=== PATIENT | male | born 1975 | race Caucasian/White ===

== ENCOUNTER 2016-11-03 15:36 | Emergency (ER) | payer BC ==
[~2016-11-03] VITALS: Ht 177.8 cm; Wt 74.8 kg
[~2016-11-03 15:36] MED LIST: LEVO100T7 PO; POLY1DRO19 OP
[2016-11-03 15:47] VITALS: TEMP 37.1; Ht 177.8 cm; Wt 74.8 kg
[2016-11-03] MEDS ORDERED: ONDANSETRON INJ 2 MG/ML 2 ML VIAL IV STA (16:33)
[2016-11-03 16:44] LABS: BASO % 0.1 %; BASO ABS # 0.01 K/uL (0-0.2); COMPLETE YES; EOS % 0.5 %; HEMATOCRIT 42.5 % (42-52); IG% 0.2 %; LYMPH % 11.2 %; LYMPH ABS # 1.35 K/uL (1.2-3.4); MEAN CELL VOLUME 84.5 fL (80-100); MEAN CORPUSCULAR HGB CONC 35.5 g/dl (32-36); MEAN PLATELET VOLUME 9.8 fL (7.4-10.4); MONO % 8.1 %; NEUT % 79.9 %; PLATELET COUNT 270 K/uL (130-400); RED BLOOD COUNT 5.03 M/uL (4.7-6.1); WHITE BLOOD COUNT 12.04 K/uL (4.8-10.8)
[2016-11-03] MEDS ORDERED: SODIUM CHLORIDE 0.9% 1000ML 1,000 ML IV ONE (16:45)
[2016-11-03] MEDS ORDERED: MoRPHine SULFATE 4 MG/ML 1 ML CARP\\VIAL IV PRN (16:45)
[2016-11-03 17:07] LABS: BUN/CREATININE RATIO 10.7 (10-20); CALCIUM 9.6 mg/dl (8.5-10.1); CREATININE 0.97 mg/dl (0.60-1.40); POTASSIUM 3.4 mmol/L (3.5-5.1)
[2016-11-03 17:07] LABS: URINE APPEARANCE CLOUDY (CLEAR); URINE BILIRUBIN NEG (NEG); URINE COLOR YELLOW; URINE EPITHELIAL CELL AUTO 0-5 /lpf (0-5); URINE NITRITE NEG (NEG); URINE PH 7.5 (4.5-7.5); URINE SPECIFIC GRAVITY 1.016 (1.000-1.030); UROBILINOGEN NEG (NEG); ZZUR CULT IF INDIC CLEAN CATCH NO
[2016-11-03 17:12] LABS: MANUAL MICROSCOPIC REQUIRED? NO; REVIEW REQ? NO
[2016-11-03] MEDS ORDERED: OPTIRAY 320 IV PRN (17:30)
[2016-11-03] MEDS ORDERED: LEVO125T4 PO (17:33)
[2016-11-03] MEDS ORDERED: TRIA1SPR4 (17:34)
[2016-11-03] MEDS ORDERED: LORA10TA57 PO (17:39)
[2016-11-03] MEDS ORDERED: KETO0.024 OP (17:39)
--- NOTE | 2016-11-03 20:06 | DIAGNOSTIC IMAGING REPORT ---
ABDOMEN AND PELVIS CT WITH IV AND ORAL CONTRAST CT DOSE: 380.65 mGy.cm HISTORY: Pain LLQ pain TECHNIQUE: Multiaxial CT images of the abdomen and pelvis were performed following the use of intravenous and oral contrast. COMPARISON STUDY: None. FINDINGS: Lung bases are clear. Liver spleen and pancreas are unremarkable. Kidneys enhance uniformly and are negative for hydronephrosis. There there is a small gallstone. Upper bowel pattern is nonobstructive. The pelvis is remarkable for wall thickening and considerable pericolonic infiltrative change of the proximal to mid sigmoid. This consistent with that of acute diverticulitis. No evidence for drainable abscess collection or obstruction. Infiltrative change extends to the left lateral pelvic sidewall IMPRESSION: 1. Acute proximal to mid sigmoid diverticulitis. 2. Considerable pericolonic infiltrative change with significant colonic wall thickening. 3. No evidence for abscess collection or obstructive change Electronically signed by: Tin Bolton M.D. 11/03/2016 8:04 PM Dictated Date/Time: 11/03/2016 8:02 PM
[2016-11-03] MEDS ORDERED: METRONIDAZOLE 250 MG TAB PO STA (20:35)
[2016-11-03] MEDS ORDERED: METR-163 PO (20:42)
[2016-11-03] MEDS ORDERED: HYDR-5688 PO (20:42)
[2016-11-03] MEDS ORDERED: CIPR1TAB10 PO (20:42)
[2016-11-03] MEDS ORDERED: CIPROFLOXACIN 500MG HOME PACK PO ONE (20:45)
[2016-11-03] MEDS ORDERED: NORCO 5/325MG HOME PACK PO ONE (20:45)
[2016-11-03] MEDS ORDERED: EMPTY 8 DRAM VIAL ONE (21:00)
[2016-11-03 21:13] VITALS: BP 128/84; PULSE 86; O2SAT 99
--- NOTE | 2016-11-04 15:26 | EMERGENCY ROOM VISIT NOTE ---
ED Visit Note First contact with patient: 16:20 Chief Complaint: Abdominal pain. History of Present Illness: Mr. Núñez is a 41 year-old white male who ambulates into the ED complaining of left lower quadrant abdominal pain. Historically patient reports patient is status post appendectomy. Patient was referred to the ED by his primary care provider for evaluation of possible diverticulitis. Patient reports a abrupt onset of left lower quadrant abdominal pain that started approximately 20 hours ago. Since that time the pain has been constant but has waxed and waned in intensity. At the onset of this pain he described his discomfort as a crampy sensation and currently he describes it as a deep achy sensation. He currently rates his discomfort 3/10. He does report intermittent he "feels like a buildup of gas" and his pain increases to a 7/10. The pain is nonradiating. He has not identified any alleviating factors related to the pain. He has not taken any medications for pain prior to arrival at the hospital. Associated with his pain he reports he's has had chills and has been nauseated but has not vomited. Patient denies fevers, sweats, skin eruptions, skin color changes, upper respiratory tract symptoms, shortness of breath, chest pain, nausea, vomiting, diarrhea, constipation, rectal bleeding, black/tarry stools, urinary symptoms, hematuria, back/flank pain. Review of Systems: As noted above in history of present illness. All body systems were reviewed and found to be negative as noted above. Past Medical History: As noted above Current Medications: Medications Dose Route/Sig Max Daily Dose Days Date Category Dose Instructions Nasacort Allergy 24Hr (Triamcinolone Acetonide (Nasal) 55 Mcg/Act Spr 2 Sprays NA UD PRN 11/03/16 Reported Levothyroxine Sodium 125 Mcg Tab 125 Mcg PO DAILY 11/03/16 Reported [place] (Ketotifen Fumarate (Ophth)) 0.025 % Noman 1 Drop OP BID PRN 10/14/15 Reported Claritin-D 24 Hour (Loratadine & Pseudoephedrine) 1 Tab Tab 1 Tab PO DAILY PRN 10/14/15 Reported Allergies to Medications: Patient denies. Social History: Patient is currently employed; he feels safe in his home environment; he denies tobacco use and admits to social alcohol use. Physical Examination: Vital Signs: Date Time Temp Pulse Resp B/P Pulse Ox O2 Delivery O2 Flow Rate FiO2 11/03/16 21:13 86 16 128/84 99 11/03/16 19:13 82 16 139/76 99 Room Air 11/03/16 17:29 77 16 135/70 98 Room Air 11/03/16 16:54 84 16 137/88 99 Room Air 11/03/16 15:47 37.1 93 18 124/81 99 Room Air GENERAL: 41-year-old male in mild distress due to pain, nontoxic-appearing, afebrile and hemodynamically stable. NEUROLOGICAL: Awake, alert and oriented to person, place and time. Answering questions appropriately and following commands. Normal gait. Good hand eye coordination. SKIN: Warm, dry and pink. No soft tissue eruptions or trauma noted. HEENT: Atraumatic and normocephalic. PERRLA. Sclera white and conjunctiva pink. Oral cavity moist and pink. Pharynx is nonerythematous or edematous. Speech normal. No lymphadenopathy. Trachea midline. No jugular venous distention. BACK: No tenderness over the bony spine. No CVA tenderness. THORAX: Lungs sounds are clear to auscultation and equal bilaterally with symmetrical chest wall. No wheezing, rales or rhonchi. No crepitus, tenderness , subcutaneous air or deformities noted. HEART: Regular rate and rhythm. No gallops, rubs or murmurs are appreciated. ABDOMEN: Flat and soft with moderate tenderness in the left lower quadrant and minimal guarding. There is also mild tenderness in the suprapubic area without guarding. Positive bowel sounds in all quadrants. No rigidity or organomegaly. EXTREMITIES: Moves all extremities well on command and with purpose. All distal neurovascular statuses are intact and equal bilaterally. ED Course: Patient is assessed as noted above. Laboratory Testing: Test 11/03/16 16:30 11/03/16 16:55 Range/Units White Blood Count 12.04 4.8-10.8 K/uL Red Blood Count 5.03 4.7-6.1 M/uL Hemoglobin 15.1 14.0-18.0 g/dL Hematocrit 42.5 42-52 % Mean Corpuscular Volume 84.5 80-100 fL Mean Corpuscular Hemoglobin 30.0 25-34 pg Mean Corpuscular Hemoglobin Concent 35.5 32-36 g/dl Platelet Count 270 130-400 K/uL Mean Platelet Volume 9.8 7.4-10.4 fL Neutrophils (%) (Auto) 79.9 % Lymphocytes (%) (Auto) 11.2 % Monocytes (%) (Auto) 8.1 % Eosinophils (%) (Auto) 0.5 % Basophils (%) (Auto) 0.1 % Neutrophils # (Auto) 9.62 1.4-6.5 K/uL Lymphocytes # (Auto) 1.35 1.2-3.4 K/uL Monocytes # (Auto) 0.97 0.11-0.59 K/uL Eosinophils # (Auto) 0.06 0-0.5 K/uL Basophils # (Auto) 0.01 0-0.2 K/uL RDW Standard Deviation 39.7 36.4-46.3 fL RDW Coefficient of Variation 12.9 11.5-14.5 % Immature Granulocyte % (Auto) 0.2 % Immature Granulocyte # (Auto) 0.03 0.00-0.02 K/uL Sodium Level 139 136-145 mmol/L Potassium Level 3.4 3.5-5.1 mmol/L Chloride Level 103 98-107 mmol/L Carbon Dioxide Level 26 21-32 mmol/L Anion Gap 10.0 3-11 mmol/L Blood Urea Nitrogen 10 7-18 mg/dl Creatinine 0.97 0.60-1.40 mg/dl Est Creatinine Clear Calc Drug Dose 105.6 ml/min Estimated GFR () 113.5 Estimated GFR (Non- 97.9 BUN/Creatinine Ratio 10.7 10-20 Random Glucose 86 70-99 mg/dl Calcium Level 9.6 8.5-10.1 mg/dl Total Bilirubin 2.1 0.2-1 mg/dl Direct Bilirubin 0.4 0-0.2 mg/dl Aspartate Amino Transf (AST/SGOT) 10 15-37 U/L Alanine Aminotransferase (ALT/SGPT) 19 12-78 U/L Alkaline Phosphatase 48 45-117 U/L Total Protein 8.0 6.4-8.2 gm/dl Albumin 4.3 3.4-5.0 gm/dl Lipase 136 73-393 U/L Urine Color YELLOW Urine Appearance CLOUDY CLEAR Urine pH 7.5 4.5-7.5 Urine Specific [place] 1.016 1.000-1.030 Urine Protein NEG NEG Urine Glucose (UA) NEG NEG Urine Ketones 1+ NEG Urine Occult Blood NEG NEG Urine Nitrite NEG NEG Urine Bilirubin NEG NEG Urine Urobilinogen NEG NEG Urine Leukocyte Esterase NEG NEG Urine WBC (Auto) 0 0-5 /hpf Urine RBC (Auto) 0-4 0-4 /hpf Urine Hyaline Casts (Auto) 0 0-5 /lpf Urine Epithelial Cells (Auto) 0-5 0-5 /lpf Urine Bacteria (Auto) NEG NEG Contrast Abdominal/Pelvic CT: Was reviewed by myself and read by the radiologist showing acute proximal to mid sigmoid diverticulitis without abscess or obstructive changes. Patient was hydrated with normal saline and he received 4 mg of Zofran IV for nausea; he was offered pain medications and refused. Patient was reassessed multiple times during his stay in the emergency department. Patient's case was reviewed with Dr. Jenkins; we agreed on diagnostic approach, treatment, disposition and plan. Patient was given 500 mg of ciprofloxacin and 500 mg of Flagyl by mouth for antibiotic coverage. Patient was educated about tonight's findings and instructed on his treatment plan; he verbalizes understanding and agreement with this plan. Clinical Impression: Acute diverticulitis. Decision-Making: Initially my differential diagnosis I considered diverticulitis , constipation, bowel obstruction, perforated viscus, kidney stone and other causes. Disposition: Patient discharged home in stable condition; prior to departure he was reassessed and subjectively reported he was feeling better and rated his discomfort 3/10. Plan: Patient was prescribed ciprofloxacin and Flagyl for 10 days; he was instructed on dosing. Patient was placed on a sliding pain scale of acetaminophen and [place]; appropriate narcotic precautions were discussed with the patient. Patient was encouraged to stay well-hydrated. Patient was encouraged to call his PCPs office tomorrow and request follow-up care and treatment. Patient was encouraged return the ED for worsening/uncontrolled pain, fevers, bloody stools, uncontrolled vomiting or any new/concerning symptoms.
== END 2016-11-03 21:14 | disposition home or self-care (01) ==
LOC: C.EDB 15:37
DX: K57.32 Diverticulitis of large intestine without perforation or abscess without bleeding (principal); Z79.899 Other long term (current) drug therapy